=== PATIENT | female | born 2000 | race Caucasian/White ===

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

== ENCOUNTER 2019-02-25 10:12 | Inpatient (IN) | payer MEDICAID ==
[~2019-02-25] VITALS: Ht 152.4 cm; Wt 79.4 kg
[~2019-02-25 10:12] MED LIST changes: +MACROBID100 MG PO; +VALTREX500 MG PO
[2019-02-25 12:00] LABS: BASOPHILS 0.1 % (0-2); EOSINOPHILS 0.1 % (0-7); HEMATOCRIT 28.7 % (36.0-48.0); HEMOGLOBIN 9.7 g/dL (12-16); IMMATURE GRANULOCYTES 0.3 % (0-5); LYMPHOCYTES 7.7 % (15-50); MCH 28.4 pg (26.0-34.0); MCHC 33.8 g/dL (31.0-37.0); MCV 83.9 fL (80.0-100.0); MEAN PLATELET VOLUME 9.2 fL (7.4-10.4); NEUTROPHILS 84.8 % (40-80); RBC 3.42 10x6/uL (4.00-5.40); RDW 13.2 % (11.5-14.5); WBC 15.7 10x3/uL (4.8-10.8)
[2019-02-25 12:09] LABS: PLATELET COUNT 240 10x3/uL (130-400)
[2019-02-25 12:14] LABS: APPEARANCE CLOUDY (CLEAR); COLOR YELLOW (YELLOW)
[2019-02-25 12:15] LABS: BILIRUBIN NEGATIVE (NEGATIVE); GLUCOSE NEGATIVE (NEGATIVE); KETONE NEGATIVE (NEGATIVE); NITRITE POSITIVE (NEGATIVE); PROTEIN 1+ mg/dL (NEGATIVE); UROBILINOGEN NORMAL (NORMAL)
[2019-02-25 12:17] LABS: BACTERIA MANY /hpf (NONE SEEN); EPITHELIAL CELLS 0-5 /hpf (0-5); RED CELLS - URINE 0-5 /hpf (0-5)
[2019-02-25 12:20] LABS: UDS - AMPHET NEGATIVE QUAL (NEGATIVE); UDS - BARB NEGATIVE QUAL (NEGATIVE); UDS - BENZO NEGATIVE QUAL (NEGATIVE); UDS - COCAINE NEGATIVE QUAL (NEGATIVE); UDS - OPIATE NEGATIVE QUAL (NEGATIVE); UDS - PCP NEGATIVE QUAL (NEGATIVE); UDS - THC NEGATIVE QUAL (NEGATIVE)
[2019-02-25 19:17] VITALS: BP 117/59
[2019-02-26] VITALS: BP 99/48
[2019-02-26 06:43] LABS: BASOPHILS 0.1 % (0-2); EOSINOPHILS 0.1 % (0-7); HEMATOCRIT 28.3 % (36.0-48.0); HEMOGLOBIN 9.4 g/dL (12-16); IMMATURE GRANULOCYTES 0.5 % (0-5); LYMPHOCYTES 9.5 % (15-50); MCHC 33.2 g/dL (31.0-37.0); MCV 84.2 fL (80.0-100.0); MEAN PLATELET VOLUME 9.7 fL (7.4-10.4); MONOCYTES 11.3 % (2-11); NEUTROPHILS 78.5 % (40-80); PLATELET COUNT 237 10x3/uL (130-400); RBC 3.36 10x6/uL (4.00-5.40); RDW 13.4 % (11.5-14.5); WBC 17.8 10x3/uL (4.8-10.8)
[2019-02-26 07:10] VITALS: BP 97/53
[2019-02-26 11:46] VITALS: BP 98/54
--- NOTE | 2019-02-26 12:30 | NUR ---
LUNCH TRAY PROVIDED TO PT, PT RESP EVEN AND UNLABORED, DENIES C/O PAIN AT THIS TIME, CUP OF ICE WATER PROVIDED PER REQUEST, CALL LIGHT IN EASY REACH, BED IN LOW POSITION, BED BRAKES LOCKED, SIDE RAILS UP X2. WILL MONITOR.
--- NOTE | 2019-02-26 13:56 | NUR ---
SWABBED VESICULAR RASH TO LEFT INNER THIGH AREA AND PLACED INTO CULTURE TUBE AND SENT TO LAB FOR SEND OUT AFTER EXPLAINING TEST, PURPOSE, AND PROCEDURE FOR TEST, PT STATES UNDERSTANDING AND INTENT TO COMPLY. DENIES OTHER NEEDS AT THIS TIME.
--- NOTE | 2019-02-26 14:20 | NUR ---
PT REPORTS AN EPISODE OF EMESIS AFTER COUGHING SPELL THAT TRIGGERED EMESIS, DENIES NAUSEA. LINENS CHANGED, FLOOR MOPPED, COOL CLOTH TO PT FOREHEAD, CUP OF ICE WATER PROVIDED. PT RESP EVEN AND UNLABORED, DENIES NEED FOR ANY N/V MEDICATION AT THIS TIME, WILL MONITOR.
[2019-02-26 14:32] VITALS: BP 98/54; Ht 152.4 cm; Wt 79.4 kg
--- NOTE | 2019-02-26 14:40 | NUR ---
SEE ADMISSION HISTORY, ASSESSMENT COMPLETED FOR NOTE THIS HOUR. NO NEEDS VOICED AT THIS TIME.
--- NOTE | 2019-02-26 15:23 | NUR ---
ROUNDS COMPLETED, PT SITTING UP IN BED WITH SIGNIFICANT OTHER AT BS, GRAPE JUICE PROVIDED ALONG WITH CUP OF ICE WATER PER PT REQUEST, NO OTHER NEEDS VOICED AT THIS TIME, WILL MONITOR.
[2019-02-26 16:47] VITALS: BP 98/47
[2019-02-26 19:21] VITALS: BP 104/54
--- NOTE | 2019-02-27 06:12 | NUR ---
7P-7A 02/26/19 SHIFT NOTED DOCUMENTED IN [facility].
[2019-02-27 06:52] LABS: BASOPHILS 0.1 % (0-2); EOSINOPHILS 0.9 % (0-7); HEMOGLOBIN 8.5 g/dL (12-16); IMMATURE GRANULOCYTES 0.3 % (0-5); LYMPHOCYTES 14.9 % (15-50); MCH 28.5 pg (26.0-34.0); MCV 83.9 fL (80.0-100.0); MEAN PLATELET VOLUME 9.3 fL (7.4-10.4); MONOCYTES 7.3 % (2-11); NEUTROPHILS 76.5 % (40-80); PLATELET COUNT 220 10x3/uL (130-400); RBC 2.98 10x6/uL (4.00-5.40); RDW 13.6 % (11.5-14.5); WBC 10.6 10x3/uL (4.8-10.8)
[2019-02-27 07:17] LABS: ALBUMIN 1.9 g/dL (3.4-5.0); ALKALINE PHOSPHATASE 119 U/L (46-116); ALT (SGPT) 18 U/L (10-68); BILIRUBIN - TOTAL 0.26 mg/dL (0.2-1.3); CALC OSMOLALITY 267 mosm/kg (275-300); CALCIUM 8.1 mg/dL (8.5-10.1); CHLORIDE - SERUM 105 mmol/L (98-107); CREATININE - SERUM 0.5 mg/dL (0.6-1.3); GLUCOSE 86 mg/dL (74-106); POTASSIUM - SERUM 3.3 mmol/L (3.5-5.1); PROTEIN - SERUM 5.7 g/dL (6.4-8.2); SODIUM 136 mmol/L (136-145); UREA NITROGEN 5 mg/dL (7-18); eGFR NON AFRICAN AMERICAN > 90 mL/min (90-120)
[2019-02-27 09:36] VITALS: BP 85/53
[2019-02-27 09:50] VITALS: BP 84/52
[2019-02-27 10:19] VITALS: BP 92/55
[2019-02-27 10:52] VITALS: BP 89/53
[2019-02-27 11:22] VITALS: BP 87/53
--- NOTE | 2019-02-27 13:37 | NUR ---
PT C/O PAIN TO SL TO LEFT ARM. DC'D WITH CATHELON INTACT. PRESSURE BANDAGE TO SITE. PT LISE WELL.
--- NOTE | 2019-02-27 20:35 | NUR ---
PT WATCHING TV, DENIES NEEDS OR PAIN AT THIS TIME, BED IN LOW POSITION, SIDE RAILS X 2, CALL LIGHT IN REACH
--- NOTE | 2019-02-28 13:35 | NUR ---
DR CISNEROS PHONES UNITS TO CHECK IF SENSITIVITY IS RESULTED ON PT'S URINE CULTURE. DR CISNEROS INFORMED IT IS NOT RESULTED YET, ORDER RCVD TO DISCHARGE PT TO HOME WITH THE WRITTEN PRESCRIPTIONS HE PROVIDED, AND INSTRUCT HER TO CALL BACK TO UNIT TOMORROW FOR SENSITIVITY RESULTS TO DETERMINE IF MED NEEDS CHANGED. WILL NOTIFY PT'S PRIMARY RN.
[2019-03-09 10:10] LABS: VIRAL - RESULT No virus isolated. (())
== END 2019-02-28 15:30 | disposition home or self-care (01) | DRG 833 ==
LOC: D.LDO 10:12 → D.LD 10:12 → D.LDO 02-27 13:32 → D.LD 02-27 13:33
PROVIDERS: ADMIT Obstetrics & Gynecology; ATTEND Obstetrics & Gynecology
DX: O23.02 Infections of kidney in pregnancy, second trimester (principal); Z3A.27 27 weeks gestation of pregnancy; O99.332 Smoking (tobacco) complicating pregnancy, second trimester; Z91.19 Patient's noncompliance with other medical treatment and regimen; O26.892 Other specified pregnancy related conditions, second trimester; N13.70 Vesicoureteral-reflux, unspecified

== ENCOUNTER → 2019-03-16 16:10 | Outpatient (CLI) | payer MEDICAID ==
[2019-02-26 14:32] VITALS: BMI 34.2
[2019-03-16 16:58] LABS: BASOPHILS 0.2 % (0-2); EOSINOPHILS 0.6 % (0-7); HEMOGLOBIN 10.5 g/dL (12-16); IMMATURE GRANULOCYTES 0.2 % (0-5); LYMPHOCYTES 19.6 % (15-50); MCH 28.8 pg (26.0-34.0); MCHC 33.9 g/dL (31.0-37.0); MCV 84.9 fL (80.0-100.0); MEAN PLATELET VOLUME 9.3 fL (7.4-10.4); NEUTROPHILS 75.4 % (40-80); RBC 3.65 10x6/uL (4.00-5.40); RDW 13.9 % (11.5-14.5); WBC 12.7 10x3/uL (4.8-10.8)
[2019-03-16 17:02] LABS: PLATELET COUNT 357 10x3/uL (130-400)
[2019-03-16 18:15] LABS: APPEARANCE SL CLDY (CLEAR); COLOR YELLOW (YELLOW); NITRITE POSITIVE (NEGATIVE); PROTEIN TRACE mg/dL (NEGATIVE)
[2019-03-16 18:16] LABS: BILIRUBIN NEGATIVE (NEGATIVE); GLUCOSE 500 mg/dL (NEGATIVE); KETONE SMALL mg/dL (NEGATIVE); UROBILINOGEN NORMAL (NORMAL)
[2019-03-16 18:18] LABS: BACTERIA MANY /hpf (NONE SEEN); EPITHELIAL CELLS 0-5 /hpf (0-5); RED CELLS - URINE RARE /hpf (0-5); WHITE CELLS - URINE 0-5 /hpf (0-5)
== END | disposition home or self-care (01) ==
LOC: D.LDO 16:10
PROVIDERS: ATTEND Obstetrics & Gynecology
DX: O23.43 Unspecified infection of urinary tract in pregnancy, third trimester (principal); Z3A.30 30 weeks gestation of pregnancy

== ENCOUNTER → 2019-04-30 01:19 | Outpatient (CLI) | payer MEDICAID ==
[2019-02-26 14:32] VITALS: BMI 34.2
[~2019-04-30 01:19] MED LIST changes: +HYDROCODON-ACE1 EA10 PO; +IBUPROFEN600 MG PO; +KEFLEX500 MG PO
--- NOTE | 2019-04-30 01:54 | NUR ---
DR. MEJIA NOTIFIED AND REVIEWED PT'S BEHAVIOR AND ASSESSMENT RESULTS. PT IS A LOW RISK PER DR. MEJIA. DR. MEJIA STATED TO GIVE RESOURCES TO PT AT TIME OF DISCHARGE. NO FURTHER ORDERS AT THIS TIME. RESOURCES REVIEWED WITH PT AND SHE VERBALIZED UNDERSTANDING. SHE REFUSES A COPY OF RESOURCES AT THIS TIME.
[2019-04-30 02:52] LABS: APPEARANCE HAZY (CLEAR); BACTERIA MODERATE /hpf (NEGATIVE); BILIRUBIN NEGATIVE (NEGATIVE); COLOR YELLOW (YELLOW); GLUCOSE NEGATIVE (NEGATIVE); KETONE NEGATIVE (NEGATIVE); NITRITE NEGATIVE (NEGATIVE); PROTEIN NEGATIVE (NEGATIVE); RED CELLS - URINE OCC /hpf (0-5); UROBILINOGEN NORMAL (NORMAL); YEAST >1+ WITH HYPHAE /hpf (NONE SEEN)
[2019-04-30 02:55] LABS: UDS - AMPHET NEGATIVE QUAL (NEGATIVE); UDS - BARB NEGATIVE QUAL (NEGATIVE); UDS - BENZO NEGATIVE QUAL (NEGATIVE); UDS - COCAINE NEGATIVE QUAL (NEGATIVE); UDS - OPIATE NEGATIVE QUAL (NEGATIVE); UDS - PCP NEGATIVE QUAL (NEGATIVE); UDS - THC NEGATIVE QUAL (NEGATIVE)
== END | disposition home or self-care (01) ==
LOC: D.LDO 01:19
PROVIDERS: ATTEND Student in an Organized Health Care Education/Training Program
DX: O47.9 False labor, unspecified (principal)

== ENCOUNTER 2019-05-17 04:40 | Inpatient (IN) | payer MEDICAID ==
[~2019-05-17] VITALS: Ht 152.4 cm; Wt 81.4 kg
[2019-05-17] VITALS (13 sets, daily range): BP systolic 87–122; BP diastolic 51–69; Ht 152.4 cm; Wt 81.4 kg
[~2019-05-17 04:40] MED LIST changes: -HYDROCODON-ACE1 EA10 PO; -IBUPROFEN600 MG PO; -KEFLEX500 MG PO
[2019-05-17] MEDS ORDERED: MACROBID100 MG PO (05:26)
[2019-05-17] MEDS ORDERED: VALTREX500 MG PO (05:27)
[2019-05-17 05:39] LABS: HEMATOCRIT 30.4 % (36.0-48.0); HEMOGLOBIN 9.7 g/dL (12-16); MCH 28.4 pg (26.0-34.0); MCHC 31.9 g/dL (31.0-37.0); MCV 89.1 fL (80.0-100.0); MEAN PLATELET VOLUME 9.8 fL (7.4-10.4); RBC 3.41 10x6/uL (4.00-5.40); RDW 15.3 % (11.5-14.5); WBC 12.4 10x3/uL (4.8-10.8)
[2019-05-17 05:54] LABS: APPEARANCE CLEAR (CLEAR); COLOR YELLOW (YELLOW); GLUCOSE NEGATIVE (NEGATIVE); KETONE NEGATIVE (NEGATIVE); NITRITE NEGATIVE (NEGATIVE); PROTEIN NEGATIVE (NEGATIVE); SPECIFIC GRAVITY 1.015 (1.005-1.020)
[2019-05-17 05:55] LABS: BILIRUBIN NEGATIVE (NEGATIVE); EPITHELIAL CELLS 0-5 /hpf (0-5); RED CELLS - URINE 0-5 /hpf (0-5); UROBILINOGEN NORMAL (NORMAL); WHITE CELLS - URINE 0-5 /hpf (NEGATIVE)
[2019-05-17 05:56] LABS: BACTERIA MODERATE /hpf (NEGATIVE)
[2019-05-17 05:57] LABS: UDS - AMPHET NEGATIVE QUAL (NEGATIVE); UDS - BARB NEGATIVE QUAL (NEGATIVE); UDS - BENZO NEGATIVE QUAL (NEGATIVE); UDS - COCAINE NEGATIVE QUAL (NEGATIVE); UDS - OPIATE NEGATIVE QUAL (NEGATIVE); UDS - PCP NEGATIVE QUAL (NEGATIVE); UDS - THC NEGATIVE QUAL (NEGATIVE)
--- NOTE | 2019-05-17 08:20 | NUR ---
pt to room 1278 via bed from rr. awake and verbal responses appro to questions. lower extremities remain numb. no o2 on. iv lt hand with pitocin 20units infusing at 125cc/hr per pump. pt requesting something to drink. abd dressing -bikini line -cd&i. ice cap to abd. danielle cath with 175cc yellow urine. scd's on. pt talking with family
--- NOTE | 2019-05-17 08:49 | NUR ---
baby in room- skin to skin. lisa pad with 80% covered with lochia- no clots. fundus massaged- firm and midline. no clots with massage- pads changed.
--- NOTE | 2019-05-17 09:07 | NUR ---
fundus uu/firm. scant lochia noted on pad at this time.
--- NOTE | 2019-05-17 09:25 | NUR ---
talking with visitors. states she has not used combat systems engineer dilaudid yet- 0.2 mg q10min prn. pt instructed on use. states that pain is 2 on scale of 0-10 at this time. fundus u2/firm. small lochia noted on pad.
--- NOTE | 2019-05-17 09:55 | NUR ---
mod lochia noted on pad with small clot. pt rolled from side to side and pads changed. fundus u2/firm/midline. pt uses medical technologist clinical button at this time.
--- NOTE | 2019-05-17 10:31 | NUR ---
sitting up in bed looking at cell phone.fundus u1/firm. scant-small lochia noted on pad.
--- NOTE | 2019-05-17 11:20 | NUR ---
FUNDUS U1/FIRM. SMALL LOCHIA NOTED ON PAD.
--- NOTE | 2019-05-17 13:08 | NUR ---
fundus u1/firm. small lochia noted on pad with small clot x1. pericare done and pad changed.
--- NOTE | 2019-05-17 14:30 | NUR ---
PT SITTING UP IN BED AWAKE & ALERT W/ NO S/S OF DISTRESS. SRUPX2 CALL LIGHT W/IN REACH. PERICARE PERFORMED AT THIS TIME, FUNDUS FIRM AT U MIDLINE W/ SMALL AMOUNT OF LOCHIA, SOLOMON EMPTIED SEE I&O'S. PT STATES "I HAVE NO PAIN RIGHT NOW I'M GOOD."
--- NOTE | 2019-05-17 16:09 | NUR ---
sitting up in bed. using utility arborist at will. kurt needs.
[2019-05-17 16:10] LABS: HEMATOCRIT 28.5 % (36.0-48.0); HEMOGLOBIN 8.9 g/dL (12-16); MCH 28.2 pg (26.0-34.0); MCHC 31.2 g/dL (31.0-37.0); MCV 90.2 fL (80.0-100.0); MEAN PLATELET VOLUME 9.9 fL (7.4-10.4); PLATELET COUNT 361 10x3/uL (130-400); RBC 3.16 10x6/uL (4.00-5.40); RDW 15.4 % (11.5-14.5); WBC 21.9 10x3/uL (4.8-10.8)
--- NOTE | 2019-05-17 16:11 | NUR ---
denies wanting toradol at this time.
--- NOTE | 2019-05-17 16:25 | NUR ---
co nausea- no emesis. cool cloth given. position changed to lt side. zofran given.
[2019-05-17 16:26] LABS: EOSINOPHILS 1 % (0-7); LYMPHOCYTES 12 % (15-50); NEUTROPHILS 87 % (40-80); PLATELET ESTIMATE NORMAL
--- NOTE | 2019-05-17 16:43 | NUR ---
states nausea is better. denies needs. scant lochia noted on pad.
--- NOTE | 2019-05-17 17:10 | NUR ---
small lochia noted on pad. states nausea is better. urine output 25cc for this hour.
--- NOTE | 2019-05-17 17:21 | NUR ---
REPORT PHONED TO DR BARRAZA OF URINE OUTPUT OF 25CC PER HOUR FOR 2 HOURS. NEW ORDERS RECEIVED.
--- NOTE | 2019-05-17 17:25 | NUR ---
IV BOLUS OF LR STARTED AT THIS TIME.
--- NOTE | 2019-05-17 18:30 | NUR ---
LR BOLUS FINISHED INFUSING NEW BAG OF LR @RATE OF 125ML/HR HUNG AT THIS TIME & INFUSING. PERICARE GIVEN TO PT, FUNDUS FIRM AT U MIDLINE WITH SMALL AMOUNT OF LOCHIA. SOLOMON EMPTIED DARK LEVON URINE 100ML OUT.
--- NOTE | 2019-05-17 19:15 | NUR ---
ANSWERED CALL LIGHT FOR PT. SPRITE TAKEN TO PATIENT.
--- NOTE | 2019-05-17 19:32 | NUR ---
RN IN FOR BEDSIDE ASSESSMENT. PT IN BED FEEDING BABY. NO C/O PAIN AT THIS TIME. HEART SOUNDS NORMAL, LUNGS CLEAR, FUNDUS U + 1 BOWEL SOUNDS WERE NOT HEARD IN ANY QUADRANT. PT ON A CLEAR LIQUID DIET. IV INFUSING LR AT 125ML/HR IN RIGHT ARM. SITE HAS NO REDDNESS OR SWELLING. BLEEDING IS MOD AMT ON PAD. SCD IN PLACE AND WORKING PROPERLY. CALL LIGHT IN REACH. INSTRUCTED TO CALL RN WHEN NEEDED.
--- NOTE | 2019-05-17 19:45 | NUR ---
PT IS RESTING WELL IN BED. PT BED IS IN LOW POSITION WITH SIDE RAILS UP X 2. HER CALL LIGHT IS IN REACH. TRAY TABLE IS WITHIN REACH.
--- NOTE | 2019-05-17 20:15 | NUR ---
PT REQ LIGHTS OUT SO SHE COULD SLEEP WHILE BABY SLEEPS. NO C/O OR NEEDS AT THIS TIME.
--- NOTE | 2019-05-17 20:15 | NUR ---
PT DOING WELL. EATING TACOS NOW. NO C/O OR NEEDS.
--- NOTE | 2019-05-17 21:50 | NUR ---
SOLOMON CATHETER EMPTIED. 225ML OF DARK, CONCENTRATED UNINE OBTAINED. PT WAS ASKED TO DRINK MORE. SHE STATES SHE DRINKS PLENTY OF SPRITE. I ADVISED PT TO DRINK WATER. OFFERED SOME BROTH TO HELP STIMUALTE BOWEL SOUNDS. SHE STATES SHE IS READY TO EAT "REAL FOOD".
--- NOTE | 2019-05-17 22:00 | NUR ---
PT ASSISTED WITH AT THIS TIME. Meghann LUTHER RN
--- NOTE | 2019-05-17 22:30 | NUR ---
PT IN ROOM BREAST FEEDING BABY. NO C/O
--- NOTE | 2019-05-17 22:59 | NUR ---
NEW DILAUDID SYRINGE PLACED IN TRANSPORTATION JOB TITLES PUMP. PT HAS NO C/O OF PAIN AT THIS TIME.
[2019-05-18 00:14] VITALS: BP 87/52
--- NOTE | 2019-05-18 01:55 | NUR ---
PT IS DOING WELL. USING HER MACHINE ENGRAVER DILAUDID NEEDED. NO C/O PAIN AT THIS TIME. NEW BAG OF LR HUNG INFUSING AT 125ML/HR.
[2019-05-18 03:54] VITALS: BP 97/53
--- NOTE | 2019-05-18 03:54 | NUR ---
PT IS TRYING TO SLEEP. NO C/O PAIN NO NEEDS AT THIS TIME.
--- NOTE | 2019-05-18 05:34 | NUR ---
PT RESTING WITH HER EYES CLOSED. RESPIRATIONS EVEN AND UNLABORED.
--- NOTE | 2019-05-18 06:30 | NUR ---
PT CALLED TO SAY THAT SHE FELT LIKE SHE COULDN'T BREATHE. WENT TO HER ROOM AND SHE TELLS ME THAT THIS HAPPENS TO HER ALL THE TIME AT HOME AND SHE JUST NEEDS TO CHANGE POSITIONS. I INSTRUCTED HER TO HOLD ON THE THE SIDE RAILS AND PUSH UP GENTLY WITH HER LEGS. SHE PERFORMED THIS WELL WITHOUT PAIN. HER SPORTS EQUIPMENT REPAIRER PUMP IS STILL INFUSING. PT DID GET HERSELF SITUATED AND IS FEELING BETTER. HER SOLOMON WAS EMPTIED WITH 1300ML URINE EMPTIED. PULSE OX IS 97 PERCENT. ICE PACK REFILLED AND PT PLACED ON INCISION. HER PAD WAS CHANGED. OLD PAD HAD SMALL TO MODERATE AMOUNT LOCHIA. S O ON THE COUCH HOLDING THAT BABY. LISTENED TO PT LUNGS. THEY SOUND CLEAR.
[2019-05-18 06:48] LABS: BASOPHILS 0.2 % (0-2); EOSINOPHILS 1.9 % (0-7); HEMATOCRIT 25.9 % (36.0-48.0); HEMOGLOBIN 8.2 g/dL (12-16); IMMATURE GRANULOCYTES 0.3 % (0-5); MCH 28.4 pg (26.0-34.0); MCHC 31.7 g/dL (31.0-37.0); MCV 89.6 fL (80.0-100.0); MEAN PLATELET VOLUME 9.7 fL (7.4-10.4); MONOCYTES 5.5 % (2-11); NEUTROPHILS 66.1 % (40-80); PLATELET COUNT 317 10x3/uL (130-400); RBC 2.89 10x6/uL (4.00-5.40); RDW 15.5 % (11.5-14.5)
[2019-05-18 06:49] LABS: WBC 11.7 10x3/uL (4.8-10.8)
--- NOTE | 2019-05-18 07:11 | NUR ---
DR CISNEROS HERE TO SEE PT.
[2019-05-18 07:50] VITALS: BP 109/55
--- NOTE | 2019-05-18 07:50 | NUR ---
REPORTS PAIN AT LEVEL 1 TO 2. STATES SHE DOES NOT LIKE TO TAKE NARCOTICS AND WOULD RATHER NON NARCOTIC PAIN RELIEVER. DISCUSSED PLANS TO HAVE PATIENT EACH MEALS IN CHAIR TODAY THEN WALK IN WISE FOR 10-20 MIN AFTER MEALS; TO USE INCENTIVE SPIROMETER EVERY HOUR AND SPLINT INCISION WHEN COUGHING. SOLOMON CATHETER REMOVED. INSTRUCTED TO VOID IN RECEPTACLE AT LEAST 3 TIMES AND REPORT; TO CALL STAFF FARZANEH IF UNABLE TO VOID WITH IN 6 HR. LOWER ABD INCISION NOTED WITH MARGINS WELL APPROXIMATED; DEMARCUS SECURE; NO REDNESS, SWELLING, DRAINAGE OR FEVER. FUNDUS FIRM AT 2 FAU WITH RUBRA LOCHIA LIGHT AND NO BLOOD CLOTS PASSED VAGINALLY. IV LEFT WRIST CONVERTED TO SALINE LOCK AND FLUSHED EASILY WITH SALINE THEN SECURED. LISE WELL. ASSISTED TO BATHROOM FOR SHOWER AFTER INCENTIVE SPIROMETRY TO 1000. LISE SHOWER WELL THEN VOIDED 200ML CLEAR YELLOW URINE. WALKED IN WISE TO NURSERY THEN TO NURSERY VIEWING WINDOW AND BACK TO ROOM TO COUCH TO SIT UP FOR BREAKFAST. LISE WELL. S.O. ASSISTING WITH CARE AND ATTENTIVE.
[2019-05-18 08:11] LABS: RAPID PLASMA REAGIN Non Reactive (Non Reactive)
--- NOTE | 2019-05-18 09:00 | NUR ---
RETURNED TO BED. DENIES PAIN ELEVATION BUT STATES SHE WOULD LIKE IBUPROFEN. NO SIGNS OF DISTRESS OR COMPLICATIONS.
--- NOTE | 2019-05-18 09:12 | NUR ---
Xu Pop 05/18/19 S: Patient states she needs help with . She has been trying to but since it's her first baby she is she just needs help. Verbally agrees to work on the positions CLC taught her and to ask Reyna from nursery for help as needed with next feedings. O: Patient sitting on sofa in room and infant in nursery. Asked how are things going with ? How can I help with . Informed patient takes time, practice, and patiences in the beginning. Both mother and infant are learning together how to . It is normal for infant to want to nurse often. How long remains latch will vary per feeding. It is normal for infant to nurse 5-25 mintues, every infant is different. Explained breastmilk composition, feeding cues, positions, how to verify infant is latched correctly to the breast, benefits of skin to skin, supply and demand, and the importance of practing responsive feeding. Encourage to ask for help as needed regarding to the nursery staff. Asked if any questions or concerns? Informed patient I will let the nusery nurse Reyna, know, she needs help with latching infant for next feeding. Encouraged to use laid back positions for next feedings. A: Patient expresses concern for needing help with . P: CLC informed nursery staff on patient needs regarding help with for next feedings. ROWAN Pacheco
--- NOTE | 2019-05-18 09:31 | NUR ---
MOTRIN FOR PAIN. EATING REGULAR DIET.
--- NOTE | 2019-05-18 10:30 | NUR ---
REPORTS PAIN AT LEVEL 1-2. STATES SHE DOES NOT WANT NICOTENE PATCH.
--- NOTE | 2019-05-18 11:30 | NUR ---
REMAINS STABLE IN ROOM WITH NO SIGNS OF DISTRESS REPORTED OR NOTED. VOIDING WITHOUT DIFFICULTY, 600ML URINE. S.O. REMAINS ATTENTIVE AT BEDSIDE.
--- NOTE | 2019-05-18 12:30 | NUR ---
REMAINS STABLE, UP AND ABOUT IN ROOM CARING FOR INFANT. NO SIGNS OF DISTRESS OR COMPLICATIONS.
--- NOTE | 2019-05-18 14:01 | NUR ---
PT ASSISTED WITH PANTIES AND PAD. VOIDS 550 ML OF DARK, YELLOW URINE. PT AMB BACK TO BED. LISE ACTIVITY WELL.
[2019-05-18 14:45] VITALS: BP 92/51
--- NOTE | 2019-05-18 15:01 | NUR ---
SLEEPING AT INTERVALS. S.O. AT BEDSIDE CARING FOR . NO SIGNS OF DISTRESS REPORTED OR NOTED. SKIN WARM DRY AND PINK. VOIDING WITHOUT DIFFICULTY. LISE REG DIET WELL WITH NO REPORTS OF NAUSEA. REPORTS PASSAGE OF GAS RECTALLY.
--- NOTE | 2019-05-18 16:00 | NUR ---
REMAINS IN BED HOLDING INFANT. SKIN WARM DRY AND PINK. ALERT AND ORIENTED. DENIES PAIN, DIFFICULTY VOIDING, PASSAGE OF BLOOD CLOTS VAGINALLY THAT ARE EGG SIZED, SATURATION OF PERIPAD W/IN 1 HR OF APPLICATION. NO SIGNS OF DISTRESS REPORTED OR NOTED. VISITOR AT BEDSIDE. MOTHER ATTENTIVE TO INFANT NEEDS.
--- NOTE | 2019-05-18 17:30 | NUR ---
REMAINS STABLE IN ROOM WITH NO SIGNS OF DISTRESS REPORTED OR NOTED. DENIES PAIN, DIFFICULTY VOIDING OR HEAVY VAGINAL BLEEDING. HOLDING INFANT. VISITOR AT BEDSIDE.
[2019-05-18 19:57] VITALS: BP 123/76
--- NOTE | 2019-05-18 19:57 | NUR ---
PT IS DOING WELL AT THIS TIME. HEART SOUNDS ARE NORMAL, LUNGS ARE CLEAR, BOWEL SOUNDS HEARD IN ALL QUADS. INCISION IS INTACT WITH DEMARCUS IN PLACE. SHE DOES NOT HAVE A DRESSING OVER INCISION SITE. SHE HAS HAD LITTLE PAIN TODAY. SHE HAS BEEN UP WALKING. SHE IS PASSING GAS. HER SOLOMON CATHETER IS OUT AND SHE HAS HAD THREE VOIDS. URINE STILL HAS A VERY SLIGHT REDISH TINGE. hER IV SITE IS SALINE LOCKED IN THE LEFT WRIST. PT STATES SHE HAS BEEN UP FOR A SHOWER TODAY. PT STATES SHE IS USING HER IS. SHE WAS ENCOURAGED TO USE IT EVERY HOUR 10 TIMES. PT SAYS SHE IS NOT GOING TO SMOKE ANY MORE BUT IS NOT INTERESTED IN THE NICOTINE PATCH.
--- NOTE | 2019-05-18 20:05 | NUR ---
PT REQUESTED MOTRINE FOR INCISIONAL PAIN. IT WAS GIVEN AT THIS TIME.
--- NOTE | 2019-05-18 20:45 | NUR ---
PAIN REASSESSMENT: PT STATES PAIN HAS IMPROVED FROM A 4 TO A 3.
--- NOTE | 2019-05-18 22:00 | NUR ---
PT REQUESTED A SANDWICH TRAY AND A SPRITE. THIS WAS SERVED TO HER. SHE HAS NO C/O AT THIS TIME.
[2019-05-19 00:29] VITALS: BP 101/50
--- NOTE | 2019-05-19 00:31 | NUR ---
VS TAKEN. PT IS SLEEPING BUT AROUSED FOR VS. SHE DENIES PAIN. SO HOLDING BABY. PT HAS NO NEEDS AT THIS TIME.
--- NOTE | 2019-05-19 02:43 | NUR ---
PT IS RESTING QUIETLY AT THIS TIME. NO C/O PAIN AND NO NEEDS AT THIS TIME. SO AT BEDSIDE.
[2019-05-19 04:12] VITALS: BP 94/52
--- NOTE | 2019-05-19 06:56 | NUR ---
ATTEMPTED TO FLUSH PT SALINE LOCK. ALL THREE PORTS ARE CLOTTED. PT STATES THAT SHE HAS NO PAIN.
--- NOTE | 2019-05-19 07:45 | NUR ---
AM ASSESSMENT COMPLETED CHARTED ON FLOWSHEET. PT DENIES PAIN OR DISCOMFORT AT THIS TIME. SALINE LOCK REMOVED FROM LEFT HAND WITH CATH INTACT. BIKINI INCISION CLEAN AND DRY WITH DEMARCUS INTACT. LIGHT BLEEDING NOTED TO MARIBELL PAD AND PT DENIES CLOTS WITH VOIDS. MARIBELL PADS PLACED IN BATHROOM PER PT REQUEST. SIDE RAILS UP X 2 WITH CALL LIGHT IN REACH. IN ROOM AT BEDSIDE.
--- NOTE | 2019-05-19 08:19 | NUR ---
Xu Muhammad 05/19/19 S: Patient states she decided last night to give baby a bottle. States her nipples and baby don't agree. States it hurts when baby latches. She plans to only pump and provide with expressed breastmilk. Denies wanted help with latching infant to the breast. States she is ok with the option of pumping only. Thanked CLC for offering to help with . O: Patient sitting up in bed and infant in nursery. Asked patient how did go yesterday? Validated patient concern. Usually sore nipples are cause because of infant latch, that's an easy fix. Would you like me to help you with latching? Validated patient request to pump only. Explained supply and demand and how often she will need to pump to help with establishing her supply. Asked if any other questions or concerns? If you decide you would like help with latching infant, please let us know. A: Patient prefers to pump due to sore nipples when latch. P: Please address all questions or concerns about to nursery staff. Andrew Rodríguez, CLC
--- NOTE | 2019-05-19 09:40 | NUR ---
PT AMB WITH INFANT IN HALLS DENIES ANY NEEDS.
--- NOTE | 2019-05-19 10:30 | NUR ---
LARGE CUP OF ICE PER REQUEST, INFANT TAKEN TO NURSERY VIA CRIB.
--- NOTE | 2019-05-19 10:40 | NUR ---
PT AND SPOUSE AMB OFF UNIT.
--- NOTE | 2019-05-19 11:15 | NUR ---
PT BACK ON UNIT AND TO NURSERY, SHE RETURNS TO HER ROOM WITH IN CRIB. DENIES PAIN AND HAS NO NEEDS AT THIS TIME.
[2019-05-19] MEDS ORDERED: IBUPROFEN600 MG PO (13:22)
[2019-05-19] MEDS ORDERED: HYDROCODON-ACE1 EA10 PO (13:22)
--- NOTE | 2019-05-19 14:00 | NUR ---
FLU SHOT GIVEN SCANNED TO EMAR.
--- NOTE | 2019-05-19 14:30 | NUR ---
VERBAL AND WRITTEN D/C INSTRUCTIONS GONE OVER WITH PT. SHE IS PROVIDED WITH A WRITTEN SCRIPT FOR NORCO 10/325MG AND MOTRIN 600MG. UNDERSTANDS TO FOLLOW UP AT CLINIC ON THURSDAY PER DR CISNEROS FOR STAPLE SUADAL. DENIES ANY QUESTIONS ABOUT INSTRUCTIONS. INFANT SECURED INTO CARRIER AND PT TAKEN OFF UNIT BY WHEELCHAIR HOME WITH FAMILY BY PRIVATE CAR.
--- NOTE | 2019-06-09 17:06 | OP ---
PATIENT NAME: SHASHANK TRAVIS MEDICAL RECORD: [id number] :99 LOCATION:[facility] D.1278 ADMISSION DATE:05/17/19 SURGEON: CHARLIE DOWELL MD DATE OF OPERATION: 05/17/2019 PREOPERATIVE DIAGNOSIS: intolerance to labor. POSTOPERATIVE DIAGNOSIS: intolerance to labor. PROCEDURE: Primary low transverse section. SURGEON: Charlie Dowell MD ESTIMATED BLOOD LOSS: 1000 cc. INTRAVENOUS FLUIDS: Per anesthesia record. ANESTHESIA: Regional via epidural. SPECIMENS: Placenta and cord for gases. FINDINGS: 1. Viable , Apgars 9 at 1 and 9 at 5. 2. Placenta delivered manually intact, 3-vessel cord noted. 3. Normal adnexa bilaterally. COMPLICATIONS: None apparent. PROCEDURE IN DETAIL: The patient was taken to the operating room where regional anesthesia was achieved without difficulty. The patient was then prepped and draped in normal sterile fashion in the dorsal supine position. Thomas catheter was in place and draining freely. SCDs were on and functioning normally. The patient was prepped and draped and a Pfannenstiel skin incision was made, extended downward to the underlying subcutaneous fat to level of the fascia, which was then excised in the midline and extended bilaterally using the Lyon scissors. The superior and inferior aspects of the fascial incision was then grasped with Ewa clamps times 2, tented upward, and sharply dissected from the underlying rectus muscles using the Bovie cautery and the Lyon scissors. Rectus muscles were then bluntly in the midline and the peritoneum was entered sharply at the superior aspect of the incision. Peritoneal incision was then excised bilaterally using the Metzenbaum scissors and a bladder blade was placed into the pelvis and a bladder flap was created by excising the anterior leaf of the broad ligament across the lower uterine segment. A low transverse incision was made with the scalpel and the uterine incision was extended superiorly and inferiorly using the Pelosi method. The vertex was delivered atraumatically followed by the body. The infant was bulb suctioned upon delivery of the head, the cord was clamped times 2, cut, and the was handed to the awaiting nursery team. Cord was obtained for gases and the placenta was then removed manually intact, 3-vessel cord was noted. The uterus was exteriorized, cleared of all clots and debris and the uterine incision repaired with 0 Vicryl in a running locked fashion times 2 with good hemostasis noted. Posterior cul-de-sac was then thoroughly irrigated and uterus was replaced into the pelvis. Anterior cul-de-sac was then thoroughly irrigated and uterine incision was found to be hemostatic. Counts were correct times 2 for needles, sponges, and instruments. The fascia was then repaired with 0 loop PDS OPERATIVE REPORT [id number] SHASHANK TRAVIS times 1 and skin repaired with bhavesh. The patient tolerated the procedure well, transferred to postanesthesia recovery stable without incident. TRANSINT:[id number] Voice Confirmation ID: [id number] DOCUMENT ID: [id number] CHARLIE DOWELL MD at 1706 CC: [id number] DICTATION DATE: 06/04/19 1324 WINDSHIELD TECHNICIAN: 06/04/19 1536 DIS IN 05/19/19 [place] [id number] [place] [address]
== END 2019-05-19 14:30 | disposition home or self-care (01) | DRG 787 ==
LOC: D.LD 04:40
PROVIDERS: ADMIT Obstetrics & Gynecology; ATTEND Obstetrics & Gynecology
PROC: 10907ZC Drainage of Amniotic Fluid, Therapeutic from Products of Conception, Via Natural or Artificial Opening (ICD-10-PCS; 2019-05-17)
PROC: 3E033VJ Introduction of Other Hormone into Peripheral Vein, Percutaneous Approach (ICD-10-PCS; 2019-05-17)
PROC: 10D00Z1 Extraction of Products of Conception, Low, Open Approach (ICD-10-PCS; principal; 2019-05-17 07:30)
DX: O99.824 Streptococcus B carrier state complicating childbirth (principal); O98.32 Other infections with a predominantly sexual mode of transmission complicating childbirth; Z3A.39 39 weeks gestation of pregnancy; Z37.0 Single live birth; O99.334 Smoking (tobacco) complicating childbirth; O99.344 Other mental disorders complicating childbirth; O36.8330 Maternal care for abnormalities of the fetal heart rate or rhythm, third trimester, not applicable or unspecified; O99.214 Obesity complicating childbirth; F32.9 Major depressive disorder, single episode, unspecified

== ENCOUNTER 2019-05-29 18:25 | Emergency (ER) | payer MEDICAID ==
[~2019-05-29] VITALS: Ht 152.4 cm; Wt 75.9 kg
[~2019-05-29 18:25] MED LIST changes: +HYDROCODON-ACE1 EA10 PO; +IBUPROFEN600 MG PO
[2019-05-29 18:33] VITALS: Ht 152.4 cm; Wt 75.9 kg
[2019-05-29] MEDS ORDERED: KEFLEX500 MG PO (20:15)
[2019-05-29 20:24] VITALS: BP 112/75
== END 2019-05-29 20:24 | disposition home or self-care (01) ==
LOC: D.ER 18:25
DX: O86.01 Infection of obstetric surgical wound, superficial incisional site (principal); L03.311 Cellulitis of abdominal wall

== ENCOUNTER 2020-02-29 21:35 | Emergency (ER) | payer MEDICAID ==
[~2020-02-29] VITALS: Ht 152.4 cm; Wt 80.9 kg
[~2020-02-29 21:35] MED LIST changes: +KEFLEX500 MG PO
[2020-02-29 21:40] VITALS: Ht 152.4 cm; Wt 80.9 kg
[2020-02-29] MEDS ORDERED: KEFLEX500 MG PO (22:18)
[2020-02-29] MEDS ORDERED: DIFLUCAN150 MG PO (22:18)
[2020-02-29 22:28] VITALS: BP 120/68
== END 2020-02-29 22:29 | disposition home or self-care (01) ==
LOC: D.ER 21:35
DX: L03.012 Cellulitis of left finger (principal); M79.645 Pain in left finger(s)